=== PATIENT | female | born 1980 | race Caucasian/White ===

== ENCOUNTER 2016-12-19 15:38 | Emergency (ER) | payer OTHER ==
[2016-12-19 16:38] LABS: BASOPHIL 0.5 % (0-2); EOSINOPHIL 0.2 % (0-5); HCT 38.6 % (37.0-47.0); HGB 13.2 g/dl (12.5-16.0); LYMPHOCYTE 9.5 % (15-48); MCH 28.4 pg (25.0-31.0); MCHC 34.2 g/dL (32.0-36.0); MCV 83.2 fL (78.0-100.0); MONOCYTE 7.8 % (0-12); MPV 10.7 fL (6.0-9.5); PLT 181 K/uL (150-400); RBC 4.64 M/uL (4.20-5.40); RDW 15.1 % (11.5-14.0)
[2016-12-19 16:49] LABS: ALBUMIN 4.1 g/dL (3.5-5.0); BILIRUBIN - TOTAL 1.2 mg/dL (0.1-1.0); CREATININE 0.7 mg/dL (0.5-1.0); POTASSIUM 3.6 mmol/L (3.5-5.1); TOTAL PROTEIN 7.1 g/dL (6.4-8.3)
== END 2016-12-19 18:19 | disposition home or self-care (01) ==
LOC: FER 15:38
PROVIDERS: Emergency Medicine
DX: K04.7 Periapical abscess without sinus (principal); K02.9 Dental caries, unspecified; F17.210 Nicotine dependence, cigarettes, uncomplicated
CPT/HCPCS: 36415; 80053; 83605; 85025